=== PATIENT | male | born 1965 | race Asian ===

== ENCOUNTER 2022-09-23 10:04 | Emergency (ER) | payer OTHER ==
[~2022-09-23] VITALS: Ht 165.1 cm; Wt 61.4 kg
[2022-09-23] MEDS ORDERED: ROSU10TA72 PO (10:19)
[2022-09-23 10:22] VITALS: BP 124/76; PULSE 76; RESP 18; TEMP 98.3
[2022-09-23] MEDS ORDERED: CHL25 PO (10:35)
== END 2022-09-23 11:21 | disposition home or self-care (01) ==
LOC: EMS 10:08
DX: Z01.30 Encounter for examination of blood pressure without abnormal findings (principal); I10 Essential (primary) hypertension
CPT/HCPCS: 99281; Z7502